=== PATIENT | female | born 1975 | race Caucasian/White ===

== ENCOUNTER 2017-02-16 02:28 | Inpatient (IN) ==
[2017-02-16 03:08] LABS: URINE SOURCE CLEAN CATCH
[2017-02-16 03:12] LABS: BILIRUBIN URINE NEGATIVE (NEGATIVE); BLOOD URINE NEGATIVE (NEGATIVE); COLOR YELLOW; GLUCOSE URINE NEGATIVE (NEGATIVE); LEUKOCYTES URINE LARGE (NEGATIVE); NITRITE URINE NEGATIVE (NEGATIVE); PH URINE 5.5; PROTEIN URINE TRACE mg/dL (NEGATIVE); SP GRAVITY URINE 1.027; TURBIDITY URINE HAZY (CLEAR); UROBILINOGEN URINE NORMAL (NORMAL)
[2017-02-16 03:13] LABS: URINE MICRO REVIEW NEEDED? YES
[2017-02-16 03:18] LABS: BASO% 0.2 % (0.0-0.8); EOS# 0.48 X1000 (0.0-0.7); EOS% 2.3 % (0.0-10.0); HEMATOCRIT 41.6 % (37.0-47.0); IMM GRAN# 0.07 X1000 (0.0-0.04); IMM GRAN% 0.3 % (0.0-0.5); LYMPH# 4.02 X1000 (1.2-3.4); LYMPH% 19.6 % (20.5-51.1); MANUAL DIFF NEEDED? NO; MCH 28.5 PG (27-31); MCHC 33.7 g/dL (33-37); MCV 84.7 FL (81-99); MONO# 1.15 X1000 (0.11-0.59); MONO% 5.6 % (1.7-9.3); MPV 9.4 FL (7.4-10.4); PLT 364 X1000 (130-400); RBC 4.91 XMIL (4.2-5.4)
[2017-02-16 03:19] LABS: UR EPITHELIAL CELLS >10 /HPF (<10); URINE BACTERIA 4+ /HPF; URINE CULTURE NEEDED? YES; URINE RBC <10 /HPF (<10); URINE WBC TNTC /HPF (<10)
[2017-02-16 03:27] LABS: URINE CRYSTALS NONE SEEN
[2017-02-16 03:35] LABS: AGAP 15; ALKALINE PHOSPHATASE 82 U/L (32-104); AMYLASE 55 U/L (20-200); BUN 10 mg/dL (8-22); CALCIUM 9.3 mg/dL (8.8-10.2); CHLORIDE 101 mmol/L (98-107); COSMO 277; GOT 13 U/L (10-30); GPT 13 U/L (10-36); LIPASE 46 U/L (13-60); POTASSIUM 4.1 mmol/L (3.5-5.1); SODIUM 138 mmol/L (136-145); TCO2 22 mmol/L (25-35); TOTAL BILIRUBIN 0.29 mg/dL (0.20-1.00); TOTAL PROTEIN 7.4 g/dL (6.3-8.3)
[2017-02-16] MEDS ORDERED: ZOFRAN IV ONE (03:36)
[2017-02-16] MEDS ORDERED: ZOFRAN ONE ×2 (03:38→06:30)
[2017-02-16] MEDS ORDERED: ZOSYN 3.375 GM/NS 3.375 GM/50 ML IVPB IV ONE (03:52)
[2017-02-16] MEDS ORDERED: FLAGYL 500 MG/NS 500 MG/100 ML IVPB IV ONE (03:53)
[2017-02-16] MEDS ORDERED: NS 1,000 ML IV ONE (03:54)
[2017-02-16] MEDS ORDERED: DILAUDID IV ONE (04:12)
[2017-02-16] MEDS ORDERED: DILAUDID IM PRN (05:03)
[2017-02-16] MEDS ORDERED: DIPRIVAN 1% ONE (06:29)
[2017-02-16] MEDS ORDERED: LR 1,000 ML ONE (06:29)
[2017-02-16] MEDS ORDERED: XYLOCAINE-MPF 2% ONE (06:30)
[2017-02-16] MEDS ORDERED: ROBINUL ONE ×2 (06:30→07:45)
[2017-02-16] MEDS ORDERED: FENTANYL ONE (06:34)
[2017-02-16] MEDS ORDERED: VERSED ONE (06:34)
[2017-02-16] MEDS ORDERED: SENSORCAINE 0.25%/EPI 1:200,000 ONE (06:35)
--- NOTE | 2017-02-16 06:55 | HISTORY AND PHYSICAL ---
HISTORY OF PRESENT ILLNESS: Ms. Pacheco is a 41-year-old, white female who presented to our emergency department during the night with abdominal pain localizing to her right lower quadrant. This started about 9:30 p.m. yesterday. She was evaluated by our emergency department physician which included CT scan of her abdomen and pelvis which suggested acute appendicitis, as did her exam. She was admitted to ne early this morning for further care. PAST MEDICAL HISTORY: Hysterectomy. MEDICATIONS: Lexapro. ALLERGIES: No known drug allergies. 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 FAMILY HISTORY: Noncontributory. REVIEW OF SYSTEMS: A 14-point review of systems was performed and was essentially negative. PHYSICAL EXAMINATION: GENERAL: Ms. Pacheco is an overweight, white female but otherwise appears to be healthy. She is awake, pleasant. She is in no acute distress. HEENT: No jaundice. No oral lesions. Satisfactory dentition. No cervical or supraclavicular lymphadenopathy. HEART: Regular rate. LUNGS: Clear to auscultation and percussion bilaterally. ABDOMEN: She was tender in the right lower quadrant. There was no evidence of hernia. No palpable mass. She had right-sided costovertebral tenderness. RECTAL/VAGINAL: Exams were not performed. EXTREMITIES: She does have palpable peripheral pulses. No peripheral edema. NEUROLOGICAL: She is alert and oriented x3, and appropriate. IMPRESSION: Acute appendicitis. PLAN: Laparoscopic, possible open appendectomy this morning. I have discussed the procedure in detail with her and her daughter in her room, [address]. We specifically discussed the need for appendectomy versus just IV antibiotics. We talked about risks of surgery which include bleeding, infection, injury to intra-abdominal contents with trocar placement, removal of a normal appendix, conversion of laparoscopic to open appendectomy, ruptured appendix requiring a drain and prolonged hospitalization, leakage from the appendiceal stump requiring reoperation for infection. She understands the need for the surgery and its risks, and she wants to proceed. cc: Irlanda Ashley MD
[2017-02-16] MEDS ORDERED: PEPCID ONE (06:56)
[2017-02-16] MEDS ORDERED: REGLAN ONE (06:56)
--- NOTE | 2017-02-16 07:19 | Diag Imaging Result Doc PS360 ---
CT ABD/PELVIS W/ IV CONT ONLY - 02/16/2017 INDICATION: severe RLQ pain, vomiting for 6 h TECHNIQUE: A CT dose reduction protocol was used. COMPARISON: None FINDINGS: The visualized lung bases are clear and the heart size is normal. There may be a small stone at the lower pole of the left kidney measuring about 4 mm. No hydronephrosis or hydroureter. The vermiform appendix is dilated with significant surrounding inflammatory edema. The appendix measures about 12 mm in caliber. There is probably also an appendicolith although this is at the tip of the appendix. No free air or drainable fluid collection. There are scattered diverticula throughout the colon including some right colon diverticula. Uterus is absent. Urinary bladder and rectum are normal. There are moderate degenerative changes of the spine. No acute or suspicious bony lesion. IMPRESSION: 1. Acute appendicitis. 2. Diverticulosis coli. 3. Probable nonobstructing left renal stone. Electronically signed by Raj Talbert 02/16/2017 7:17 AM
[2017-02-16] MEDS ORDERED: QUELICIN (DOSE) ONE (07:45)
[2017-02-16] MEDS ORDERED: ZEMURON ONE (07:45)
[2017-02-16] MEDS ORDERED: NEOSTIGMINE ONE (07:45)
[2017-02-16] MEDS ORDERED: TORADOL ONE (07:51)
[2017-02-16] MEDS ORDERED: PHENERGAN ONE (08:56)
[2017-02-16] MEDS ORDERED: SODIUM CHLORIDE 0.9% INJ PRN (09:03)
[2017-02-16] MEDS ORDERED: TYLENOL PO PRN (09:03)
[2017-02-16] MEDS ORDERED: MORPHINE IV PRN (09:03)
[2017-02-16] MEDS ORDERED: PHENERGAN IV PRN (09:03)
--- NOTE | 2017-02-16 12:25 | OPERATIVE NOTE ---
PROCEDURE DATE: 02/16/2017 PREOPERATIVE DIAGNOSIS: Acute appendicitis. POSTOPERATIVE DIAGNOSIS: Acute appendicitis. PRINCIPAL PROCEDURE: Laparoscopic appendectomy. SURGEON: Irlanda Ashley MD. ANESTHESIA: General in addition to local anesthetic. ESTIMATED BLOOD LOSS: 25 mL. DRAINS: None. INDICATIONS: Ms. Dhara Pacheco is a 41-year-old, white female who has a 12-hour history of abdominal pain, which localized to her right lower quadrant. She was evaluated in our emergency department which included the CT scan of her abdomen and pelvis which suggested acute appendicitis, as did her exam. FINDINGS: She had acute appendicitis, mostly involving the distal half of the appendix. The proximal part was not inflamed and we were able to come across it nicely. We felt we did the operation safely. No other intraabdominal pathology was noted. DESCRIPTION OF PROCEDURE: The patient was brought to the operating room, placed supine, received general anesthesia, was intubated. We did place a Scott catheter tube. Her abdomen was prepped and draped in a sterile field. She had already received IV antibiotics. We made a small incision below the umbilicus using a 15 blade scalpel. A Veress needle was introduced through this incision into the abdomen and a pneumoperitoneum was established. Once the pneumoperitoneum was established, we removed the Veress needle and then we used step trocars. I placed an 11 mm step trocar through this incision just below the umbilicus. The camera was placed through this port, and the abdomen was explored for injury, there was none. Two other trocars were placed under direct vision of the camera. Again, these were step trocars, one was a 12 mm step trocar through a longitudinal incision, lower midline of the abdomen, and then one was a 5 mm trocar in the right lower quadrant. The camera was at the umbilicus. A grasper and dissector were at the lower trocar sites. We easily identified the inflamed appendix. We mobilized it with blunt dissection. I created a space in the mesoappendix at the base of the appendix and then using a gold load, Endo- JASON stapler, we came across the base of the appendix. I mobilized it a little bit more with blunt dissection and then used a reload of the Endo-JASON stapler to come across the appendiceal mesentery. We used an endobag to remove the appendix through our umbilical incision. I placed the trocar back through this incision and the area of operation was thoroughly inspected, irrigated, and the irrigation was removed with suction. There was no evidence of ongoing bleeding. We were happy with the appendiceal stump. We did not use a drain. All trocars removed under direct vision of the camera. The pneumoperitoneum was allowed to dissipate. I used figure- of-eight 2-0 Vicryl stitches to reapproximate the fascia in our midline incisions. All skin was closed with 4-0 Monocryl subcuticular stitches. Dressings were applied. We will remove the Scott catheter tube. She will go the recovery room and then return to the floor. cc: Irlanda Ashley MD
[2017-02-16] MEDS: NORCO-10 PO PRN ×2 (16:26→21:03)
[2017-02-16] MEDS: LR 1,000 ML IV SCH (16:27)
[2017-02-16] MEDS: PERIDEX MT SCH ×2 (17:02→21:03)
[2017-02-17] MEDS: NORCO-10 PO PRN (02:28)
[2017-02-17] MEDS: LR 1,000 ML IV SCH (02:28)
[2017-02-17 07:34] VITALS: BP 132/79
[2017-02-17] MEDS: PERIDEX MT SCH (08:34)
--- NOTE | 2017-02-18 06:51 | DISCHARGE SUMMARY ---
ADMISSION DATE: 02/16/2017 DISCHARGE DATE: 02/17/2017 ADMITTING DIAGNOSIS: Acute appendicitis. DISCHARGE DIAGNOSIS: Acute appendicitis. PRINCIPAL PROCEDURE: Laparoscopic appendectomy on 02/16/2017. DISCHARGE DISABILITY: Full. DISCHARGE MEDICATIONS: [place] 7.5 p.r.n. pain. DISCHARGE DIET: Regular. DISCHARGE DISPOSITION: She will return to our outpatient offices in 1 week for a followup. HOSPITAL COURSE: Ms. Dhara Pacheco is a 41-year-old white female who presented to our emergency department with a 12-hour history of abdominal pain, which localized to her right lower quadrant. As part of her evaluation in the emergency department, she received an abdominal and pelvic CT scan, which suggested appendicitis, as did her clinical exam. Later that morning I took her to the operating room, and she underwent a laparoscopic appendectomy. She had no evidence of rupture of her appendix. We felt we did the operation safely. No drains were left, and after surgery, she went to the recovery room and then to the [address] [place] [address] chakraborty. On postoperative day 1, she was tolerating liquids. Her abdomen was soft. Her trocar sites were healing well, and it was felt safe to discharge her home under the care of her family with a followup in our outpatient offices in 1 week. At discharge, her heart rate was 75, blood pressure 132/79, O2 saturation 97% room air. She was voiding without difficulty, and she was afebrile. She knows to contact me with any increasing abdominal pain, nausea, or vomiting. Otherwise, I will see her in 1 week. cc: Irlanda Ashley MD
--- NOTE | 2017-02-19 07:13 | PROVIDER DOCUMENTATION ---
This chart was entered by Omid Flynn Scribe, acting as scribe for El Espitia MD. HPI-Abdominal Pain/GI Problem - General Chief Complaint: Abdominal Pain Stated Complaint: LOWER RT SIDE PAIN Time Seen by Provider: 02/16/17 02:46 Source: patient Allergies/Adverse Reactions: Patient Allergies Allergy/AdvReac Type Severity Reaction Status Date / Time No Known Allergies Allergy Verified 02/16/17 02:38 Home Medications: Home Medication List Medication Instructions Recorded Confirmed Last Taken Type Citalopram [Celexa] 40 mg PO DAILY 02/16/17 02/16/17 02/15/17 History Iron Fm,Ps No.1/Folic/Mv No.18 1 each PO DAILY 02/16/17 02/16/17 02/15/17 History [Tandem Plus Capsule] Omeprazole 40 mg PO DAILY 02/16/17 02/16/17 02/15/17 History Hydrocodone/Acetaminophen [[place] 1 each PO Q6H PRN PRN #12 tablet 02/17/17 Unknown Rx 7.5-325 Tablet] - History of Present Illness-ABD Nature of Presenting Problems: Pt is a 41 yowf who presents to ER with CC of sudden onset of intermittent sharp -dull RLQ pain that started at 0 last night. Pt denies any hx of ovarian fibrosis and states that she still has her appendix. Pt also complains of nausea. Abdominal Pain Onset Location: reports: RLQ Pain Radiation: reports: no radiation Quality of Pain: reports: dull, sharp Severity in ED: reports: moderate Onset/Duration: reports: abrupt (0 last night) Timing: reports: intermittent (intermittent sharp to dull to sharp pain) Associated Symptoms: reports: nausea. denies: anxiety, arm pain, back/neck pain , chest pain, fever/chills, genitourinary problems, headaches, joint pain, loss of appetite, muscle aches, shortness of breath, vomiting, weakness, trouble walking Last BM: unsure Emesis Description: reports: none Review of Systems - Adult - REVIEW OF SYSTEMS - ADULT Constitutional: denies: chills, fever, fatique, night sweats, weight gain, weight loss Eyes: reports: no symptoms reported Ears, Nose, Mouth & Throat: reports: no symptoms reported Cardiovascular: denies: chest pain, irregular heart rate, palpitations, poor circulation, syncope Respiratory: reports: no symptoms reported Gastrointestinal: reports: abdominal pain, nausea. denies: hematemesis, constipation, diarrhea, difficulty swallowing, frequent heartburn, poor appetite , rectal bleeding, vomiting Genitourinary: denies: dysuria, flank pain, hematuria, incontinence Musculoskeletal: reports: no symptoms reported Integumentary: reports: no symptoms reported Neurological: reports: no symptoms reported Psychiatric: reports: no symptoms reported Endocrine: reports: no symptoms reported Hematologic/Lymphatic: reports: no symptoms reported Allergic/Immunologic: reports: no symptoms reported All Other Systems: Reviewed and Negative Past History - Adult - PAST MEDICAL HISTORY-ADULT Review of Records: reports: Nursing Assessment Review, Medications Reviewed - IMMUNIZATION STATUS Childhood Immunizations: See Nurse Assessment Flu Vaccine: See Nurse Assessment Physical Exam-General - PHYSICAL EXAM-ADULT Initial Vital Signs Reviewed: Yes - CONSTITUTIONAL General Appearance: appears well, alert, mild distress, obese - EYES Eyes: pink conjunctivae - NECK Neck: non-tender, full range of motion, supple. negative: limited range of motion, lymphadenopathy - RESPIRATORY Respiratory: chest non-tender, lungs clear, normal breath sounds, no pleuratic chest pain, no respiratory distress, no accessory muscle use. negative: respiratory distress, decreased breath sounds, accessory muscle use, wheezing - CARDIOVASCULAR Cardiovascular: normal peripheral pulses, regular rate, rhythm. negative: bradycardia, tachycardia, irregularly irregular - GASTROINTESTINAL (ABDOMEN) Abdominal Exam: normal bowel sounds, non tender, soft, no organomegaly, no pulsatile mass. negative: distended, rebound, tenderness - NEUROLOGIC Neurologic: grossly normal, no motor/sensory deficits - PSYCHIATRIC Psych/Mental Status: normal mood/affect, normal thought content, normal thought process, oriented x 3, anxious Progress - PLAN OF CARE/RESULTS Progress/Plan/Lab Results: Vital Signs - 8 hr 02/16/17 02:31 Temperature 97.8 F Pulse Rate 100 H Respiratory Rate 14 Blood Pressure 137/79 O2 Sat by Pulse Oximetry 100 Orders Category Date Time Status Saline Loc DIRECTED Care 02/16/17 02:55 Ordered NPO Diet 02/16/17 02:55 Ordered AMYLASE [CHEM] Stat Lab 02/16/17 02:55 Uncollected CBC WITH ELECTRONIC DIFF [HEME] Stat Lab 02/16/17 02:55 Uncollected COMPREHENSIVE METABOLIC PANEL [CHEM] Stat Lab 02/16/17 02:55 Uncollected LIPASE [CHEM] Stat Lab 02/16/17 02:55 Uncollected URINALYSIS W/POSS RFLX CULT-1 [URINALYSIS] Stat Lab 02/16/17 02:55 Ordered Result Diagrams: 02/16/17 02:55 02/16/17 02:55 Departure - Departure Date of Disposition Decision: 02/16/17 Time of Disposition Decision: 02:29 DIAGNOSIS: Appendicitis Qualifiers: Appendicitis type: acute appendicitis Acute appendicitis type: with localized peritonitis Qualified Code(s): K35.3 - Acute appendicitis with localized peritonitis Disposition: ADMITTED INPATIENT 09 Certified Medical Emergency: Emergent Condition: Stable - Critical Care Note This patient required my direct & personal management of CC.: No This chart was documented by the indicated scribe, (Omid Flynn Scribe) and accurately reflects the services I performed and decisions made by me, El Espitia MD, as attested by the provider's signature.
== END 2017-02-17 10:29 | disposition home or self-care (01) ==
LOC: ED 02:28 → 4N 02:29
PROVIDERS: ADMIT Surgery; ATTEND Surgery